=== PATIENT | male | born 1965 | race Caucasian/White ===

== ENCOUNTER 2018-03-17 12:45 | Outpatient (RCR) | payer BC ==
[~2018-03-17 12:45] MED LIST: CARDURA4 MG PO; COZAAR100 MG PO; LOPRESSOR100 MG PO; LYRICA 50MG CAP50 MG PO; MOBIC15 MG PO; PERCOCET 325 MG1 TA2 PO; ROBAXIN 75750 MG/TAB PO; TRICOR145 MG PO
== END 2018-03-20 16:05 | disposition home or self-care (01) ==
LOC: WSPT 12:45
DX: R10.31 Right lower quadrant pain (principal)

== ENCOUNTER 2018-04-24 14:15 | Outpatient (RCR) | payer BC, OTHER | END 2018-06-18 | disposition home or self-care (01) | LOC: WSC | DX: M54.16 Radiculopathy, lumbar region (principal); M25.551 Pain in right hip; M76.01 Gluteal tendinitis, right hip; R10.31 Right lower quadrant pain ==

== ENCOUNTER 2018-11-17 22:22 | Observation (INO) | payer BC ==
[~2018-11-17] VITALS: Ht 175.3 cm; Wt 153.6 kg
[2018-11-17 22:59] LABS: BASO # 0.1 (0.0-0.2); BASO % 0.6 % (0.0-2.0); EOS # 0.3 (0.0-0.7); EOS % 3.2 % (0-4.0); GRAN # 5.3 (1.4-6.5); GRAN % 60.9 % (42.2-75.2); HEMATOCRIT 44.2 % (42.0-52.0); HEMOGLOBIN 14.5 g/dl (13.5-18.0); LYMPH # 2.2 (1.2-3.4); LYMPH % 24.7 % (20.0-51.0); MEAN CELL VOLUME 93 fl (80.0-100.0); MEAN CORPUSCULAR HEMOGLOBIN 30 pg (27.0-31.0); MEAN CORPUSCULAR HGB CONC 33 g/dl (33.0-37.0); MEAN PLATELET VOLUME 10.3 fl (7.4-10.4); MONO # 0.9 (0.1-0.6); MONO % 10.1 % (1.7-9.3); PLATELET COUNT 228 K/mm3 (130-400); RED BLOOD COUNT 4.78 M/mm3 (4.20-5.60); REDCELL DISTRIBUTION WIDTH-CV 12.3 % (11.5-14.5)
[2018-11-17 23:04] LABS: PROTHROMBIN TIME 11.9 SECONDS (9.7-12.8)
[2018-11-17 23:07] LABS: D-DIMER < 200.00 ng/mLDDu (200-230); PARTIAL THROMBOPLASTIN TIME 28.8 SECONDS (26.0-37.0)
[2018-11-17 23:09] LABS: ALANINE AMINOTRANSFERASE 30 U/L (21-72); ALBUMIN 4.3 gm/dL (3.5-5.0); ALKALINE PHOSPHATASE 61 U/L (50-136); ANION GAP 10 mmol/L (7-16); AST,SGOT 35 U/L (15-37); BILIRUBIN,TOTAL 0.3 mg/dL (0.0-1.0); BLOOD UREA NITROGEN 18 mg/dL (9-20); CARBON DIOXIDE 24 mmol/L (22-30); CHLORIDE 103 mmol/L (98-107); CREATININE, serum 0.96 (0.66-1.25); GLUCOSE 118 mg/dL (74-106); POTASSIUM 3.9 mmol/L (3.4-5.0); SODIUM 138 mmol/L (137-145); TOTAL PROTEIN 7.4 gm/dL (6.4-8.2)
[2018-11-17 23:21] LABS: TROPONIN-I < 0.012 ng/mL (0.000-0.035)
[2018-11-18] VITALS (10 sets, daily range): BP systolic 106–143; BP diastolic 56–87; PULSE 65–97; TEMP 96.6–97.9
[2018-11-18] MEDS ORDERED: KAPSPARGO SPRI200 MG PO (00:17)
[2018-11-18] MEDS ORDERED: DIOVAN320 MG PO (00:18)
[2018-11-18] MEDS ORDERED: CARDURA 8MG TAB8 MG PO (00:19)
[2018-11-18] MEDS ORDERED: D3-5050000 IU (00:19)
[2018-11-18] MEDS ORDERED: JARDIANCE25 (00:20)
--- NOTE | 2018-11-18 01:30 | NUR ---
Pt arrived to room 353, transferred per stretcher by ED RN. Pt awake, a&o, cooperative c cares. Denies chest pain at this time. Only current c/o is of chronic back pain, will give home dose PRN Percocet when able. Denies any other c/o. Sister at bedside. Pt/sister oriented to room, unit policies et current POC. Questions invited et answered, both verbalize understanding. INT x2 patent et s complication. IVF et Heparin GTT infusing per orders. Tele in place. Pt denies needs at this time. Call light in reach. Will continue c admit process.
[2018-11-18 06:36] LABS: CHOLESTEROL 145 mg/dL (120-200); CHOLESTEROL RISK RATIO 4.5; HDL CHOLESTEROL 32 mg/dL; LDL CHOLESTEROL 71 mg/dL; TRIGLYCERIDE 212 mg/dL
[2018-11-18 06:41] LABS: TROPONIN-I 6 HR POST INITIAL < 0.012 ng/mL (0.000-0.034)
--- NOTE | 2018-11-18 08:00 | NUR ---
Initial; Pt laying in bed, no complaints of pain or discomfort. Pt is leaving the floor for stress test. Removed NS, heparin drip remained running. Call light and personal belongings within reach.
--- NOTE | 2018-11-18 11:55 | NUR ---
AVRIL met with the patient to discuss discharge plan. The patient lives alone in-between [place] and [place]. He states that his sister, Dang Charles (ph#[phone]), lives in [place]. He reports independence with ADLs and has a cane, walker, and wheelchair. The patient's PCP is Dr. Rey Chamberlain in [place] and he receives his medications at the [facility] in [place]. He reports no difficulties obtaining his meds. The patient does not have advanced directives completed, but he was interested in obtaining a form for DPOA-[employer]. AVRIL provided. He states that his next-of-kin is his sister, Dang. The patient plans to return back home upon discharge. No additional needs at this time.
--- NOTE | 2018-11-18 13:40 | NUR ---
RA SPO2 85%. PLACED ON 2 LPM NC 96%.
[2018-11-18] MEDS ORDERED: NAPROSYN500 MG PO (14:27)
--- NOTE | 2018-11-18 17:44 | NUR ---
Discharge; Pt had no concerns at during discharge instructions. Pt's sister is coming to pick him up. He is going home, and is understanding of the changes being made to medications and dietary instruction. Removed IVs and no complications. Instructed pt to watch for bleeding due to being on a heparin drip, he was understanding. Sister will be here shortly to pick him up. No other concerns at this time.
== END 2018-11-18 17:10 | disposition home or self-care (01) ==
LOC: COL.ER 22:22 → MEDICAL 11-18 00:03 → COL.ER 11-18 00:03 → MEDICAL 11-18 00:03
PROVIDERS: Family Medicine; ADMIT Hospitalist
DX: R07.89 Other chest pain (principal); I10 Essential (primary) hypertension; E78.5 Hyperlipidemia, unspecified; E11.9 Type 2 diabetes mellitus without complications; E66.01 Morbid (severe) obesity due to excess calories; Z68.42 Body mass index [BMI] 45.0-49.9, adult; E78.1 Pure hyperglyceridemia; N40.0 Benign prostatic hyperplasia without lower urinary tract symptoms; G89.29 Other chronic pain; M54.9 Dorsalgia, unspecified; I08.1 Rheumatic disorders of both mitral and tricuspid valves; G47.33 Obstructive sleep apnea (adult) (pediatric); Z79.899 Other long term (current) drug therapy
CPT/HCPCS: A9500; G0378; J1644; J2270; J2785; J7030

== ENCOUNTER 2022-03-31 03:52 | Emergency (ER) | payer MEDICARE ==
[~2022-03-31] VITALS: Ht 177.8 cm; Wt 170.0 kg
[~2022-03-31 03:52] MED LIST changes: +CARDURA 8MG TAB8 MG PO; +D3-5050000 IU; +DIOVAN320 MG PO; +JARDIANCE25; +KAPSPARGO SPRI200 MG PO; +NAPROSYN500 MG PO; +ZITHROMAX Z PA250 MG PO
[2022-03-31 03:58] VITALS: TEMP 97.7
[2022-03-31 04:41] LABS: BASO # 0.1 K/mm3 (0.0-0.2); BASO % 0.6 % (0.0-2.0); EOS # 0.2 K/mm3 (0.0-0.7); EOS % 2.2 % (0.0-4.0); GRAN # 5.4 K/mm3 (1.4-6.5); GRAN % 63.5 % (42.2-75.2); HEMATOCRIT 46.9 % (42.0-52.0); HEMOGLOBIN 15.8 g/dl (13.5-18.0); LYMPH % 23.5 % (20.0-51.0); MEAN CELL VOLUME 92 fl (80.0-100.0); MEAN CORPUSCULAR HEMOGLOBIN 31 pg (27-31); MEAN CORPUSCULAR HGB CONC 34 g/dl (33.0-37.0); MEAN PLATELET VOLUME 10.5 fl (7.4-10.4); MONO # 0.8 K/mm3 (0.1-0.6); MONO % 9.7 % (1.7-9.3); PLATELET COUNT 196 K/mm3 (130-400); RED BLOOD COUNT 5.09 M/mm3 (4.20-5.60); REDCELL DISTRIBUTION WIDTH-CV 12.5 % (11.5-14.5)
[2022-03-31 04:46] LABS: PROTHROMBIN TIME 11.6 SECONDS (9.7-12.8)
[2022-03-31 04:59] LABS: ALBUMIN 3.9 gm/dL (3.5-5.0); BILIRUBIN,TOTAL 0.4 mg/dL (0.2-1.2); CALCIUM 10.4 mg/dL (8.4-10.2); CREATININE, serum 0.85 mg/dL (0.72-1.25); POTASSIUM 3.8 mmol/L (3.5-4.5); TOTAL PROTEIN 7.5 gm/dL (6.2-8.1)
[2022-03-31 05:06] LABS: TROPONIN-I 0.011 ng/mL (0.00-0.033)
[2022-03-31] MEDS ORDERED: AMOXICILLIN 50500 MG PO (06:14)
[2022-03-31 06:29] VITALS: BP 119/88; PULSE 85
== END 2022-03-31 06:30 | disposition home or self-care (01) ==
LOC: COL.ER 03:52
PROVIDERS: Emergency Medicine
DX: I10 Essential (primary) hypertension (principal); H66.92 Otitis media, unspecified, left ear; E66.01 Morbid (severe) obesity due to excess calories; G47.33 Obstructive sleep apnea (adult) (pediatric); Z99.89 Dependence on other enabling machines and devices; Z68.43 Body mass index [BMI] 50.0-59.9, adult; Z28.310 Unvaccinated for COVID-19
CPT/HCPCS: J0780; J1100; J1200; J1885; Q9967

== ENCOUNTER 2022-11-18 12:13 | Emergency (ER) | payer MEDICARE ==
[~2022-11-18] VITALS: Ht 177.8 cm; Wt 177.3 kg
[~2022-11-18 12:13] MED LIST changes: +AMOXICILLIN 50500 MG PO
[2022-11-18 12:17] VITALS: TEMP 98.2
[2022-11-18 14:19] LABS: BASO # 0.1 K/mm3 (0.0-0.2); BASO % 0.6 % (0.0-2.0); EOS # 0.1 K/mm3 (0.0-0.7); EOS % 1.4 % (0.0-4.0); GRAN # 6.6 K/mm3 (1.4-6.5); GRAN % 71.2 % (42.2-75.2); HEMOGLOBIN 17.2 g/dl (13.5-18.0); LYMPH # 1.5 K/mm3 (1.2-3.4); LYMPH % 15.8 % (20.0-51.0); MEAN CELL VOLUME 101 fl (80.0-100.0); MEAN CORPUSCULAR HEMOGLOBIN 32 pg (27-31); MEAN CORPUSCULAR HGB CONC 32 g/dl (33.0-37.0); MEAN PLATELET VOLUME 10.3 fl (7.4-10.4); MONO % 10.4 % (1.7-9.3); PLATELET COUNT 226 K/mm3 (130-400); RED BLOOD COUNT 5.34 M/mm3 (4.20-5.60); REDCELL DISTRIBUTION WIDTH-CV 13.5 % (11.5-14.5)
[2022-11-18 14:20] LABS: HEMATOCRIT 53.8 % (42.0-52.0)
[2022-11-18 14:40] LABS: ALBUMIN 4.2 gm/dL (3.5-5.0); BILIRUBIN,TOTAL 0.6 mg/dL (0.2-1.2); CREATININE, serum 0.96 mg/dL (0.72-1.25); POTASSIUM 4.2 mmol/L (3.5-4.5); TOTAL PROTEIN 8.1 gm/dL (6.2-8.1)
[2022-11-18 15:04] LABS: COLLECTION METHOD CLEAN CATCH
[2022-11-18 15:17] LABS: SQUAMOUS EPITHELIAL None Seen /hpf (0-10); URINE APPEARANCE Clear (CLEAR/HAZY); URINE BACTERIA None Seen /hpf (NONE SEEN); URINE BLOOD Negative (NEGATIVE); URINE COLOR Yellow (YELLOW); URINE GLUCOSE 3+ (NEGATIVE); URINE KETONE Negative (NEGATIVE); URINE NITRATE Negative (NEGATIVE); URINE PROTEIN(semi-quant) Negative (NEGATIVE); URINE RBC 0-2 /hpf (0-2); URINE UROBILINOGEN 0.2 (NEGATIVE)
[2022-11-18] MEDS ORDERED: LASIX 20MG TABL20 MG PO (15:52)
[2022-11-18] MEDS ORDERED: K-TAB10 PO (15:52)
[2022-11-18 16:04] VITALS: BP 158/84; PULSE 80
== END 2022-11-18 16:04 | disposition home or self-care (01) ==
LOC: COL.ER 12:13
PROVIDERS: Family Medicine
DX: R60.9 Edema, unspecified (principal); Z28.310 Unvaccinated for COVID-19